=== PATIENT | male | born 1980 | race Hispanic/Latino ===

== ENCOUNTER 2017-05-01 15:51 | Emergency (ER) | payer SELFPAY ==
[~2017-05-01] VITALS: Ht 177.8 cm; Wt 97.3 kg
[2017-05-01 16:05] VITALS: BP 179/104; PULSE 53; RESP 20; O2SAT 100
--- NOTE | 2017-05-01 16:25 | ED.REPORT ---
HPI-Extremity Problem Upper Date of Service May 01, 2017 ED Provider: Fab Rosario MD Pt is a 36 year old male complaining of right elbow pain onset after he fell on it at work just prior to arrival. He denies any SOB, fever, chills, nausea, vomiting, head injury, LOC, neck pain, or any other injury at this time. He fell on outstretched hands on the stairs. Nursing Notes Stated Complaint: RIGHT ARM INJURY Chief Complaint: Extremity Trauma Nursing Notes Reviewed: Yes Allergies: Coded Allergies: No Known Allergies (Unverified , 05/01/17) Scheduled PRN Hydrocodone-Acetaminophen 5-325 mg (Hydrocodone-Acetaminophen 5-325 mg) 1 Each Tablet 1 TABLET PO Q4H PRN PRN For Pain General Time Seen by MD: 16:12 Chief Complaint Elbow injury right Hx Obtained From: Patient Arrived By: Walk-in Onset Occurred: Just prior to arrival Symptom Duration: Since onset Caused by: Fall on ground Location: : Elbow right Quality: Painful Severity: Current: Severe Severity: Maximum: Severe Recent Healthcare: No recent doctor visit, No recent hospitalization Similar Sx Previous: No Past Medical History Past Medical History denies Past Surgical History denies Smoking History Unknown if Ever Smoker Ambulatory Status Independent Review of Systems Constitutional: Denies: Chills, Fever Musculoskeletal: Reports: Extremity pain, Joint pain, Denies: Neck pain Neurologic: Denies: Change LOC, Headache Complete sys rev & neg: except as marked. Respiratory: Denies: Shortness of breath GI: Denies: Nausea, Vomiting Physical Exam Initial Vital Signs Vital Signs (First) Date Time Temp Pulse Resp B/P Pulse Ox O2 Delivery O2 Flow Rate FiO2 05/01/17 16:05 37.0 53 20 179/104 100 Room Air Initial VS: Reviewed General/Constitutional: Well-developed, Well-nourished Head / Eyes: Atraumatic, Normocephalic, PERRL ENT: Mucous membranes moist, Conjunctiva normal, No scleral icterus Neck: Supple, Non-tender, Full range of motion Respiratory: No respiratory distress Cardiovascular: Intact distal pulses Abdomen / GI: No distention Lower Extremities: Vascular intact, Neuro intact, No swelling, No tenderness Skin: Warm, Dry, No cyanosis Neurologic: Alert, Oriented, Nonfocal Psychiatric: Mood/affect normal, Behavior normal, Normal thought content Upper Extremity / MS: Neurologic intact, Vascular intact Right elbow appears obviously dislocated. Good radial pulses, sensation and capillary refill to fingertips. Interpretation & Diagnostics X-Ray Interpretation Xray Interpretation: IMPRESSION: Posterior lateral dislocation of elbow. Dictated by: Vaughn Quintanilla M.D. on 05/01/2017 at 16:39 Approved by: Vaughn Quintanilla M.D. on 05/01/2017 at 16:41 ADDENDUM: Because unconventional views were obtained (the patient was unable to bend elbow), cannot rule out fractures. In fact, occult fractures are suspected given extensive dislocation. Dictated by: Vaughn Quintanilla M.D. on 05/01/2017 at 16:45 IMPRESSION: Persistent lateral right elbow subluxation after closed reduction. Dictated by: Miguel Jurado M.D. on 05/01/2017 at 17:49 X-Ray Ordered: Elbow right Interpretation / Wet Read by: Interpret - Radiologist Procedures Procedure Notes: Second Sedation: Procedure Performed by: ED physician Sedation Time: 20 min Consent / Setup: Informed consent provided, Time-out performed, Hand hygiene observed, Stand sterile technique, Head of bed at 30-60 deg Indication: Elbow reduction Preparation: residential monitor applied, Pulse oximeter applied, Constant attendance, IV access established, Eval last meal time, Supplemental oxygen, Procedure explained, Suction available, End tidal CO2 mon applied VS Prior to Procedure: All vital signs normal Mallampati: Class & Anatomy: 1 tonsils/uvula/s palate Airway Exam: Normal facial anatomy CVS/Resp Exam: Normal breath sounds Neuro Exam: Alert Sedation: Sedation: Ketamine (100) ASA Classification: 1 normal healthy patient Response During Procedure: Handled secretions adeq, Maintained airway well, Oxygenation stable, Sedation appropriate, Vital signs stable Complications During/After: None Reversal: None required Mental Status After Procedure: Alert Post-Procedure: Alert prior to discharge Attestation: I performed procedure, I performed sedation Second Reduction Attempt: Right elbow dislocation reduction. Procedure Performed by: ED physician Consent / Setup: Informed consent provided, Time-out performed, Oxygen administered, Pulse oximeter applied, residential monitor applied, Hand hygiene observed, Stand sterile technique Procedural Sedation/Analgesia: Sedation: Ketamine Neurovascular: Intact pre-procedure, Intact post-procedure Post-Procedure / Complications: Traction at the right elbow and supination, Reduced per examination, Procedure successful, X-ray showed good alignment, Condition improved, Tolerated procedure well, Patient stable Proced Mod Sedation/Analgesia Pt tolerated procedure well. Time: 17:10 Procedure Performed by: ED physician Sedation Time: 16 - 30 min Consent / Setup: Informed consent provided, Time-out performed, Hand hygiene observed, Stand sterile technique, Head of bed at 30-60 deg Indication: Elbow reduction Preparation: residential monitor applied, Pulse oximeter applied, Constant attendance, IV access established, Eval last meal time, Supplemental oxygen, Procedure explained, Suction available, End tidal CO2 mon applied VS Prior to Procedure: All vital signs normal Mallampati: Class & Anatomy: 1 tonsils/uvula/s palate Airway Exam: Normal facial anatomy CVS/Resp Exam: Normal breath sounds Neuro Exam: Alert Sedation: Sedation: Ketamine (50), Sedation: Propofol (200 mg) ASA Classification: 1 normal healthy patient Response During Procedure: Handled secretions adeq, Maintained airway well, Oxygenation stable, Sedation appropriate, Vital signs stable Complications During/After: None Reversal: None required Mental Status After Procedure: Alert Post-Procedure: Alert prior to discharge Attestation: I performed procedure, I performed sedation Reduction Dislocated Shoulder Right elbow dislocation reduction. Time: 17:10 Procedure Performed by: ED physician Consent / Setup: Informed consent provided, Time-out performed, Oxygen administered, Pulse oximeter applied, residential monitor applied, Hand hygiene observed, Stand sterile technique Procedural Sedation/Analgesia: Sedation: Ketamine, Sedation: Propofol Neurovascular: Intact pre-procedure, Intact post-procedure Post-Procedure / Complications: Reduced per examination, Procedure successful, X-ray disloc reduced, Condition improved, Tolerated procedure well, Patient stable Re-Eval/Medical Decision Med Decision/Clinical Course Patient is a generally healthy 36-year-old male who presents to the emergency department after sustaining a ground-level fall. He is complaining of right elbow pain/deformity he has no other complaints. Here in the emergency department the patient is afebrile and hemodynamically stable with obvious deformity of his right elbow however he is neurovascularly intact in the affected extremity. Full head to toe survey reveals no other associated injuries. Hydromorphone was ordered for pain. Right elbow x ray: Posterior lateral dislocation of elbow. Because unconventional views were obtained (the patient was unable to bend elbow), cannot rule out fractures. In fact, occult fractures are suspected given extensive dislocation. Procedural sedation was performed as documented above. The patient's elbow was easily reduced by traction and flexion at the elbow as documented above. Postreduction films: Bones: There is persistent lateral subluxation of the right elbow on the frontal projection, status post closed reduction. No fractures identified. No suspicious bony lesions. Soft tissues: No elbow joint effusion. No suspicious soft tissue calcifications. Repeat sedation was performed and we were able to successfully reduce his radial head as well. Repeat films showed near anatomical alignment. Patient was discussed with orthopedic surgery. Pre-and postreduction films were reviewed and were considered adequate at this time. Patient was placed in posterior splint and sling. Neurovascular status was confirmed to remain intact thereafter. Patient was given prescription for [place]. He will follow up with orthopedic surgery first thing next week. Prior to discharge follow-up and return precautions were reviewed in detail with the patient (via outside property agent) who verbalized understanding and agreement with the plan. The patient was discharged in stable condition. Re-Evaluation/Progress #1: Time of Eval: 16:23 Patient Status: Condition improved Re-Evaluation/Progress Note: Pt in x ray. Re-Evaluation/Progress #2: Time of Eval: 16:39 Patient Status: Condition improved Re-Evaluation/Progress Note: Performed physical exam His last meal was this morning but he had a small amount of water just prior to arrival. Re-Evaluation/Progress #3: Time of Eval: 17:10 Patient Status: Condition improved Re-Evaluation/Progress Note: Performed conscious sedation. Pt tolerated procedure well. Re-Evaluation/Progress #4: Time of Eval: 17:41 Patient Status: Condition improved Re-Evaluation/Progress Note: Pt recovering from conscious sedation. Good pulses post procedure. Consultation : Referral / Consult Name: Sorin Reeves MD Consulted With: Orthopedic Call Returned at: 16:43 Note: Splint the patient and follow up in clinic. Counseled Regarding: Diagnosis, Lab results, Need for follow-up, When/why to return to ED Discharge & Departure Impression: Primary Impression: Dislocation of right elbow Encounter type: initial encounter Qualified Code: S53.104A - Unspecified dislocation of right ulnohumeral joint, initial encounter Additional Impressions: Right elbow pain Fall from ground level Disposition: Home Discharge Condition All VS Reviewed: Yes Condition: Improved Patient Instructions: Elbow Dislocation (ED), Splint Care (ED) Additional Instructions: Thank you for seeking care at the emergency room. You dislocated your right elbow and we reduced it in the ER. You will be discharged with a prescription for pain medication. You should follow-up with your primary doctor in the next week. Call the orthopedic surgeon Dr. Reeves first thing on Thursday to make a follow up appointment. Remain in the sling and splint at all times. You should return to the ED immediately if you develop any swelling, pain, numbness, discoloration of fingertips, fevers, vomiting, cough, shortness of breath, chest pain, lightheadedness, weakness or any other concerning signs or symptoms. Thank you for letting us partake in your care today. Narcotic Pain Medicine You have been prescribed a narcotic for pain relief. These drugs are usually combined with acetaminophen (Tylenol#3, Percocet, Darvocet, Anexsia, Vicodin) or aspirin (Empirin#3, Percodan, Synalogs-DC) for increased effect. Narcotics act on the central nervous system to reduce pain; they also impair mental alertness and physical abilities. We advise you not to drink alcohol, drive a car, or operate dangerous equipment when you are taking these drugs.. You can lessen stomach irritation from your medicine by taking it with meals or a full glass of water. Common side effects of narcotics are: Nausea and vomiting , heartburn, constipation, dizziness, sleepiness, and mood changes. If you have bothersome side effects or symptoms of an allergic reaction (itching, hives, rash), stop taking your medicine and call your doctor or the emergency room right away. Please keep your narcotic medicine well out of the reach of children. Ángel por buscar ch cuidado en el departamento. Ud. disloco' ch codo derecho y lo reducimos en el departamento de emergencia. Le vamos a beni de desean con massimo receta para medicina para el dolor. Ud debiera hacer seguimiento con ch doctor de cabecera en massimo semana. Llame al cirujano ortopedico el Dr. Reeves la primera cosa el para hacer chico de seguimiento. Guarde puesta la honda y tablillo en todo momento Ud. debiera regresar al departamento de emergencia inmediatamente si desarrola hinchazon, dolor, entumecimiento, la puntas de los dedos descolorados, fiebre, vomito, tos, falta de aliento, dolor de pecho, sentir de desmayar, debilidad o cualquier otros senales preocupantes o sintomas Medicamento narcotico para dolor Le recetamos un narcotico para aliviar dolor. Estas drogas usualmente son combinadas con acetaminophen(Tylenol#3, Percocet, Darvocet, Anexsia, Vicodin) o aspirina(Empirin#3, Percodan, Synalogs-DC) por aumento de efecto. Narcoticos actuan en el sistema nerviosa central para reducir el dolor; tambien impiden estar alerto mentalmente y abilidad fisica. Efectos segundarios comunes de narcoticos son:nausea, vomito, agruras, estrenimiento, mareos, sueno y camlbio en ch estado de animo. Si Ud tiene efectos secundarios moestos y sintimas de massimo reaccion alerica(comezon, ronchas, sarpullido) deje de rodolfo ch medicina y llama ch doctor o ir al dkepartamento de emergencia de massimo vez. Por favor mantega ch medicamento narcotico fuera del alcance de elliot. Referrals: Sorin Reeves MD Scribe Attestation Portions of this note were transcribed by [place]. I, Dr. Rosario personally performed the history, physical exam and medical decision-making; I reviewed and confirmed the accuracy of the information in the transcribed note. Signed by: Lexa Garcia, 05/01/2017. copies to: Sorin Reeves MD, Beck O MD May 01, 2017 16:25 BEL STRAUSS May 01, 2017 16:29 Nathalia Dsouza May 02, 2017 23:15
[2017-05-01] MEDS ORDERED: Propofol 10 mg/mL 20 mL Inj IVPUSH ONE (16:40)
--- NOTE | 2017-05-01 16:43 | DRSVH ---
PROCEDURE: X-RAY RIGHT ELBOW COMPLETE, MINIMUM THREE VIEWS ([id number]) INDICATIONS: fell onto right elbow severe pain TECHNIQUE: 3 views of the elbow were acquired. COMPARISON: None. FINDINGS: Bones: There is posterior lateral dislocation of elbow. No suspicious bony lesions. Soft tissues: No elbow joint effusion. No suspicious soft tissue calcifications. IMPRESSION: Posterior lateral dislocation of elbow. Dictated by: Vaughn Quintanilla M.D. on 05/01/2017 at 16:39 Approved by: Vaughn Quintanilla M.D. on 05/01/2017 at 16:41
[2017-05-01] MEDS ORDERED: HYDR-4003 PO (17:06)
[2017-05-01] MEDS ORDERED: HYDROmorphone 1 mg/mL Inj IVPUSH ONE (17:10)
[2017-05-01 17:15] VITALS: BP 145/85; PULSE 52; RESP 16; O2SAT 98
[2017-05-01] MEDS ORDERED: Ketamine 100 mg/mL 5 mL Inj ONE (17:19)
--- NOTE | 2017-05-01 17:52 | DRSVH ---
PROCEDURE: X-RAY RIGHT ELBOW, TWO VIEWS ([id number]) INDICATIONS: 36 year-old male status post closed reduction of right elbow dislocation. TECHNIQUE: 3 views of the elbow were acquired. COMPARISON: [facility], CR, XR ELBOW COMP MIN 3VW RT, 05/01/2017, 16:20. FINDINGS: Bones: There is persistent lateral subluxation of the right elbow on the frontal projection, status p ost closed reduction. No fractures identified. No suspicious bony lesions. Soft tissues: No elbow joint effusion. No suspicious soft tissue calcifications. IMPRESSION: Persistent lateral right elbow subluxation after closed reduction. Dictated by: Miguel Jurado M.D. on 05/01/2017 at 17:49 Approved by: Miguel Jurado M.D. on 05/01/2017 at 17:51
[2017-05-01] MEDS ORDERED: Ketamine 100 mg/mL 5 mL Inj IV ONE (18:25)
--- NOTE | 2017-05-01 19:28 | DRSVH ---
PROCEDURE: X-RAY RIGHT ELBOW, TWO VIEWS ([id number]) INDICATIONS: 36 year-old male with closed reduction of right elbow dislocation. TECHNIQUE: 2 views of the elbow were acquired. COMPARISON: [facility], CR, XR ELBOW COMP MIN [facility]VW RT, [facility]2017[facility]20[facility] 2VW RT, 05/01/2017, 17:14. FINDINGS: Bones: Elbow joint is now in near anatomic alignment, with persistent widening of the radiocapitellar compartment, consistent with injuries involving the radial collateral ligament and lateral ulnar col lateral ligament. Lateral projection demonstrates small fracture involving the coronoid tip. No susp icious bony lesions. Soft tissues: No elbow joint effusion. No suspicious soft tissue calcifications. IMPRESSION: 1. Right elbow is now in near anatomic alignment after closed reduction, with persistent widening of the radiocapitellar compartment consistent with lateral elbow ligament injuries classically associate d with posterior dislocation. 2. Associated small fracture involves the tip of the coronoid process. Dictated by: Miguel Jurado M.D. on 05/01/2017 at 19:24 Approved by: Miguel Jurado M.D. on 05/01/2017 at 19:27
[2017-05-01 22:01] VITALS: BP_SYST 170; BP_SYST 171; BP_DIAS 87; BP_DIAS 91; PULSE 52; PULSE 84; RESP 17; O2SAT 100
== END 2017-05-01 19:40 | disposition home or self-care (01) ==
LOC: SED 15:51
DX: S53.194A Other dislocation of right ulnohumeral joint, initial encounter (principal); M25.521 Pain in right elbow; W01.198A Fall on same level from slipping, tripping and stumbling with subsequent striking against other object, initial encounter; Y93.89 Activity, other specified; Y92.9 Unspecified place or not applicable; Y99.0 Civilian activity done for income or pay